=== PATIENT | female | born 1990 | race Caucasian/White ===

== ENCOUNTER 2019-03-23 12:18 | Emergency (ER) | payer OTHER ==
[~2019-03-23] VITALS: Ht 157.5 cm; Wt 63.3 kg
[2019-03-23] MEDS ORDERED: FAMO20TA PO (12:31)
[2019-03-23] MEDS ORDERED: GNP28TAB2 PO (12:31)
[2019-03-23 13:34] LABS: BASO % 0.3 % (0.0-1.0); EOS # 0.2 10^3/uL (0.0-0.5); EOS % 1.8 % (0.0-3.0); HEMATOCRIT 41.9 % (36.0-47.0); HEMOGLOBIN 13.9 g/dl (12.0-15.5); LYMPH # 1.4 10^3/uL (1.5-5.0); LYMPH % 10.4 % (24.0-44.0); MEAN CORPUSCULAR HEMOGLOBIN 30.2 pg (27.0-33.0); MEAN CORPUSCULAR HGB CONC 33.2 g/dl (32.0-36.5); MEAN CORPUSCULAR VOLUME 90.9 fl (80.0-96.0); MONO # 0.7 10^3/uL (0.0-0.8); MONO % 5.3 % (0.0-5.0); NEUTROPHILS # 11.2 10^3/uL (1.5-8.5); NEUTROPHILS % 81.7 % (36.0-66.0); PLATELET COUNT, AUTOMATED 248 10^3/uL (150-450); RED BLOOD COUNT 4.61 10^6/uL (4.00-5.40); WHITE BLOOD COUNT 13.7 10^3/uL (4.0-10.0)
[2019-03-23 14:01] LABS: HCG, SERUM QUALITATIVE POSITIVE (NEGATIVE)
[2019-03-23 14:02] LABS: ALT/SGPT 40 U/L (12-78); BLOOD UREA NITROGEN 8 MG/DL (7-18); CALCIUM LEVEL 8.7 MG/DL (8.5-10.1); CARBON DIOXIDE LEVEL 27 MEQ/L (21-32); CHLORIDE LEVEL 109 MEQ/L (98-107); CREATININE FOR GFR 0.56 MG/DL (0.55-1.30); GLOMERULAR FILTRATION RATE > 60.0 (>60); GLUCOSE, FASTING 75 MG/DL (70-100); POTASSIUM SERUM 4.4 MEQ/L (3.5-5.1); SODIUM LEVEL 139 MEQ/L (136-145)
[2019-03-23 14:03] LABS: ALBUMIN 3.7 GM/DL (3.2-5.2); BILIRUBIN,DIRECT 0.1 MG/DL (0.0-0.2); BILIRUBIN,TOTAL 0.4 MG/DL (0.2-1.0); LIPASE 111 U/L (73-393); TOTAL PROTEIN 7.3 GM/DL (6.4-8.2)
[2019-03-23 16:04] LABS: CK-MB VALUE MASS < 1.0 NG/ML (<3.6); CPK CREATINE PHOSPHOKINASE 58 U/L (26-192); MB/CK RELATIVE INDEX 1.72 (< OR =4); TROPONIN I < 0.02 NG/ML (< 0.10)
[2019-03-23] MEDS ORDERED: NS 1,000 ML IV ONE (16:45)
[2019-03-23] MEDS ORDERED: ONDANSETRON 4MG/2ML VIAL (J2405) IV ONE (16:45)
--- NOTE | 2019-03-23 16:53 | REP ---
FIRST TRIMESTER ULTRASOUND: Real-time sonographic evaluation of the gravid uterus performed. There is a single living intrauterine gestation. The estimated gestational age is 8 weeks 5 days based on a crown rump length of 21 mm, EDC 10/28/2019. heart rate 182 beats per minute. No subchorionic hemorrhage is seen. No maternal region adnexal abnormality is seen. There is no torsion with duplex Doppler evaluation. Electronically Signed by Stephon Romeo MD 03/23/2019 05:06 P
[2019-03-23] MEDS ORDERED: CALCIUM CARBONATE 500 MG CHEW U/D PO ONE (17:30)
[2019-03-23 18:06] VITALS: BP 114/63
--- NOTE | 2019-03-24 15:00 | ECGEPIP ---
[facility] - ED Test Date: 2019-03-23 Pat Name: PEE ONEIL Department: Room: - Gender: Female Cio: osmar : 1990 Requested By: RONAK TAN Order Number: [id number] Reading MD: Eder Palma Measurements Intervals Ola Rate: 61 P: 59 UT: 154 QRS: 51 QRSD: 95 T: -2 QT: 401 QTc: 404 Interpretive Statements SINUS RHYTHM WITH MARKED SINUS ARRHYTHMIA Comparison tracing not on file Electronically Signed on 03-24-2019 15:00:39 EST by Eder Palma
== END 2019-03-23 18:20 | disposition home or self-care (01) ==
LOC: M ED 12:18
DX: O26.891 Other specified pregnancy related conditions, first trimester (principal); R10.9 Unspecified abdominal pain; R11.0 Nausea; Z3A.08 8 weeks gestation of pregnancy; Z91.040 Latex allergy status
CPT/HCPCS: 76801; 80048; 80076; 81001; 82550; 82553; 83690; 84484; 84703; 85025; 86901; 93005; 93976; 96361; 96374; 99284; J2405

== ENCOUNTER 2019-07-04 13:23 | Emergency (ER) | payer OTHER ==
[~2019-07-04] VITALS: Ht 157.5 cm; Wt 72.7 kg
[~2019-07-04 13:23] MED LIST: FAMO20TA PO; GNP28TAB2 PO
[2019-07-04 13:33] VITALS: BP 120/70
--- NOTE | 2019-07-05 07:12 | ECGEPIP ---
[facility] - ED Test Date: 2019-07-04 Pat Name: PEE ONEIL Department: Room: - Gender: Female Pharmacy Intake Coordinator: CT : 1990 Requested By: STEPHEN HUNTER PA-C. Order Number: [id number] Reading MD: Karmen Conroy Measurements Intervals Colbert Rate: 80 P: 49 VT: 133 QRS: 50 QRSD: 91 T: -1 QT: 363 QTc: 420 Interpretive Statements SINUS RHYTHM INCREASED RATE 03/23/19 Electronically Signed on 07-05-2019 7:12:48 EDT by Karmen Conroy
== END 2019-07-04 14:12 | disposition home or self-care (01) ==
LOC: M ED 13:23
DX: O99.342 Other mental disorders complicating pregnancy, second trimester (principal); F41.0 Panic disorder [episodic paroxysmal anxiety]; Z3A.24 24 weeks gestation of pregnancy; F33.9 Major depressive disorder, recurrent, unspecified; Z79.899 Other long term (current) drug therapy; Z91.040 Latex allergy status

== ENCOUNTER 2019-07-25 17:08 | Outpatient (CLI) | payer OTHER ==
[~2019-07-25] VITALS: Ht 157.5 cm; Wt 75.8 kg
[2019-07-25 17:26] VITALS: BP 105/57
--- NOTE | 2019-07-25 18:02 | IPNPDOC ---
Text Note Date of Service The patient was seen on 07/25/19. NOTE Patient is 29yo at 26wks. C/o decreased movement. No contractions. No loss of fluid or bleeding. Good movement upon arrival. PE: VS WNL GEN NAD, Comfortable FHT: Category 1, 140s, reactive, no decels. no contractions. A/P: Fetus reassuring. Patient not in labor and no rupture of membranes. Patient given labor precautions, rupture of membranes precautions and kick counts. She has a follow up appt on 08/02/2019. VS,Fishbone, I+O VS, Fishbone, I+O Vital Signs Date Time Temp Pulse Resp B/P (MAP) Pulse Ox O2 Delivery O2 Flow Rate FiO2 07/25/19 17:26 98.9 85 16 105/57 (73) Modesta Lacy MD Jul 25, 2019 18:02
== END 2019-07-25 18:00 | disposition home or self-care (01) ==
LOC: M LDO 17:08
PROVIDERS: ATTEND Obstetrics & Gynecology
DX: O36.8120 Decreased fetal movements, second trimester, not applicable or unspecified (principal); Z3A.26 26 weeks gestation of pregnancy
CPT/HCPCS: 59025; G0378; G0463

== ENCOUNTER 2019-10-21 12:35 | Inpatient (IN) | payer OTHER ==
[~2019-10-21] VITALS: Ht 157.5 cm; Wt 86.5 kg
[2019-10-21] MEDS ORDERED: LR 1,000 ML IV SCH (15:39)
[2019-10-21 15:40] LABS: HEMATOCRIT 35.2 % (36.0-47.0); HEMOGLOBIN 11.9 g/dl (12.0-15.5); MEAN CORPUSCULAR HEMOGLOBIN 32.1 pg (27.0-33.0); MEAN CORPUSCULAR HGB CONC 33.8 g/dl (32.0-36.5); MEAN CORPUSCULAR VOLUME 94.9 fl (80.0-96.0); PLATELET COUNT, AUTOMATED 207 10^3/uL (150-450); RED BLOOD COUNT 3.71 10^6/uL (4.00-5.40); WHITE BLOOD COUNT 12.8 10^3/uL (4.0-10.0)
[2019-10-21] MEDS ORDERED: OXYTOCIN DRIP 30 UNITS in IV 1 EA IV SCH (15:45)
--- NOTE | 2019-10-21 15:52 | HPEPDOC ---
Obstetrical History & Physical General Date of Admission Oct 21, 2019 at 13:23 History of Present Illness 29yo at 39w2d with LOF. Has had irreg ctx. No vaginal bleeding. Chief Complaint: Rupture of membranes Information Provided By: Patient Age: 29 : 3 Livin Care Care: Good Care Dating Final EDC: Oct 25, 2019 Final EDC by: LMP, 1st trimester (US) LMP: Jan 18, 2019 EGA at Admission: 39 Past Medical History Past Obstetrical History : Past Obstetrical History: Multigravida Type of Delivery: Spontaneous Vaginal Del. 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 BREAST: . ABDOMEN: Gravid and non-tender to touch. FETUS: Is vertex (VTX) by sterile vaginal examination (SVE), fetus is vertex (VTX) by Barak. HEART RATE: Regular rate and rhythm. LUNGS: Clear to auscultation (CTA). Laboratory Data 24H LABS Laboratory Tests 2 10/21/19 13:31: Serology Scanned Report Hepatitis B Testing 10/21/19 14:10: CBC/BMP Pertinent Laboratoy Data Blood Type: A+ HIV: Negative Hepatitis B: Negative Rapid Plasma Reagin: Nonreactive Rubella: Immune Varicella: Immune Chlamydia/Gonorrhea: Negative Group B Streptococcus: Negative Glucose Tolerance Test: 125 Anatomy Ultrasound Placenta Location: Posterior Normal Anatomy: Yes Placenta Previa: No Vaginal Examination Dilation: 3 cm Effacement: 70% Station: -3 (Grossly ruptured) Cervical Consistency: Soft Cervical Position: Middle Presentation: Cephalic presentation Assessment Variability: Moderate Accelerations: Positive Decelerations: None Tocometer Contractions: No Frequency: irregular Assessment/Plan Assessment 29yo at 39w2d with PROM Reassuring status Plan Admit and orient. Professor Of Communication and consent. Group B Streptococcus (GBS) negative. Labs and intravenous (IV) per unit protocol. Counseled on Pitocin and induction of labor (IOL). Anticipate normal spontaneous delivery (). C-S as appropriate. CRISTOBAL TAYLOR MD. Oct 21, 2019 15:52
[2019-10-21] MEDS ORDERED: FENTANYL 2MCG/ML ROPIVACAINE 0.2% IN 0.9% NACL 100ML IVBAG As Ordered ONE (22:38)
[2019-10-21] MEDS ORDERED: ePHEDrine SULFATE 25 MG/5 ML(5MG/ML) SYRINGE IV PRN (23:30)
[2019-10-21] MEDS ORDERED: FENTANYL/ROPIVACAINE/NACL BAG 100 ML EPIDURAL SCH (23:30)
[2019-10-21] MEDS ORDERED: EPIDURAL/PCA KEYS XX PRN (23:30)
[2019-10-21] MEDS ORDERED: LACTATED RINGER'S 1000 ML IV PRN (23:30)
[2019-10-21] MEDS ORDERED: diphenhydrAMINE 50MG/ML VIAL (J1200) IV PRN (23:30)
[2019-10-21] MEDS ORDERED: NALOXONE INJ 0.4MG/1ML VIAL (J2310 PER 1MG) IV PRN (23:30)
[2019-10-21] MEDS ORDERED: EPIDURAL COMMENT XX SCH (23:30)
[2019-10-21] MEDS ORDERED: REFRIGERATOR IV KEYS XX PRN (23:30)
[2019-10-21] MEDS ORDERED: ONDANSETRON 4MG/2ML VIAL IV PRN (23:30)
[2019-10-22] MEDS ORDERED: OXYTOCIN DRIP 30 UNITS in IV 1 EA IV SCH (00:05)
--- NOTE | 2019-10-22 00:11 | DNPDOC ---
[facility] Delivery Note Delivery Note DATE OF DELIVERY: 10/21/2019 TIME OF : 2348 GENDER: Male. APGARS: 8 and 9. WEIGHT: 4230 grams or 9 pounds 5 ounces. LACERATIONS: None ANESTHESIA: Epidural. COUNTS: 5 laparotomy sponges accounted for prior to after delivery. DELIVERY NOTE: On 10/21/2019, Mrs Styles a 29yo G3, now P3 had a spontaneous vaginal delivery of viable male infant, Apgars 8 and 9 and weight was 4230 g or 9 lbs. 5 oz. Head was delivered occiput anterior (OA) with compound right hand and cord around body. Shoulders and corpus delivered. Infant was handed to mom with a good cry. Cord was clamped times two and was cut by the father of baby under my direction. Placenta was then drained and delivered grossly intact. A premixed bag of 500 mL of normal saline with 30 units of Pitocin was then bolused along with uterine massage until the uterus was firm. On inspection,cervix, vagina, perineum was grossly intact and hemostatic. Mom and baby in recovery on stable condition. The couples decided to remain in son Bladimir White. CRISTOBAL TAYLOR MD. Oct 22, 2019 00:11
[2019-10-22] MEDS ORDERED: ACETAMINOPHEN TAB 650MG DOSE (2X325MG) PO PRN (00:15)
[2019-10-22] MEDS ORDERED: MOM 30ML SUSPENSION UDC PO PRN (00:15)
[2019-10-22] MEDS ORDERED: DIBUCAINE 1% OINTMENT 30GM TOP PRN (00:15)
[2019-10-22] MEDS ORDERED: RHOGAM 300 MCG (1500 IU) INJ (J2790) IM SCH (00:15)
[2019-10-22] MEDS ORDERED: DOCUSATE SODIUM 100 MG CAP PO PRN (00:15)
[2019-10-22] MEDS ORDERED: METHYLERGONOVINE MALEATE 0.2 MG TAB PO PRN (00:15)
[2019-10-22] MEDS ORDERED: MEASLES,MUMPS,RUBELLA VACCINE INJ (MMR-II) (90707) SC SCH (00:15)
[2019-10-22] MEDS ORDERED: IBUPROFEN 600MG TAB PO PRN (00:15)
[2019-10-22 03:06] VITALS: BP 118/65
[2019-10-22] MEDS: ACETAMINOPHEN 500 MG TAB PO PRN ×2 (04:14→11:53)
[2019-10-22 06:00] VITALS: BP 113/56
[2019-10-22] MEDS: IBUPROFEN 800 MG TAB PO PRN ×2 (06:25→20:42)
--- NOTE | 2019-10-22 06:52 | IPNPDOC ---
Progress Note Date of Service: Oct 22, 2019 Day#: 1 Progress Note SUBJECT: Doing well without complaints. Ambulating, voiding and pain is well- controlled. Reports minimal lochia. OBJECTIVE: VITAL SIGNS: Within normal limits, afebrile. Alert and oriented times three. Abdomen: Fundus firm at U-2. Soft, NTTP. Ext: neg calf tenderness. ASSESSMENT: day #1 status post normal spontaneous vaginal delivery. Recovering in stable condition. PLAN: 1. Continue routine care 2. Discharge plans for tomorrow VS, I&O, 24H, Fishbone Vital Signs/I&O Vital Signs Date Time Temp Pulse Resp B/P (MAP) Pulse Ox O2 Delivery O2 Flow Rate FiO2 10/22/19 06:00 98.0 65 18 113/56 (75) I&O- Last 24 Hours up to 6 AM 10/22/19 06:00 Intake Total 2100 ml Output Total 1750 ml Balance 350 ml Laboratory Data 24H LABS Laboratory Tests 2 10/21/19 13:31: Serology Scanned Report Hepatitis B Testing 10/21/19 14:10: Nucleated Red Blood Cells % (auto) 0.0, Syphilis Serology NONREACTIVE CBC/BMP Laboratory Tests 10/21/19 14:10 CRISTOBAL TAYLOR MD. Oct 22, 2019 06:52
[2019-10-22] MEDS: PRENATAL VITAMINS CHEWABLE TABLET PO SCH (07:35)
[2019-10-22] MEDS ORDERED: SIMETHICONE 80 MG CHEW TAB PO PRN (17:15)
[2019-10-22 18:00] VITALS: BP 101/65
[2019-10-23] MEDS: ACETAMINOPHEN 500 MG TAB PO PRN (05:24)
[2019-10-23 06:51] VITALS: BP 112/66
--- NOTE | 2019-10-23 07:15 | OBDS ---
[facility] Obstetrical Discharge Sum. Obstetrical Discharge Summary Date: Oct 23, 2019 Time: 06:45 : 3 Term: 3 Pre-term: 0 Abortions: 0 Livin VDRL: Non-Reactive Rh: Negative Rubella: Immune Labor uncomplicated labor Delivery spontaneous vaginal delivery Infant Sex: Male Anesthesia: Regional Anesthesia Episiotomy none A/P, Post Course List any complications Admission diagnosis: labor. Discharge diagnosis: day 2 Condition at Discharge: [stable] Discharge Instructions: [Home] Activity: [increase activity as comfortable, pelvic rest x 6wks, no baths or swimming] Diet: [regular diet] Medications: [ meds at [place], script to resume Zoloft] Follow-up: [f/u in OB clinic 2 wks for mental health evaluation and control counseling, 6wks for physical exam] Other: JANETTE CEJA CNM Oct 23, 2019 07:15
[2019-10-23] MEDS: PRENATAL VITAMINS CHEWABLE TABLET PO SCH (07:45)
[2019-10-23] MEDS ORDERED: INFLUENZA QUADRIVALENT PF VACCINE 0.5ML SYRINGE IM ONE (09:00)
--- NOTE | 2019-10-30 10:48 | IPN ---
DATE: 10/22/2019 Patient and requested circumcision of their male after discussing risks and benefits of the circumcision, the medical and non-medical indications, the penile block and aftercare, expressed understanding of penile block and aftercare. Signed a consent form. All questions were answered, 20- minute discussion. We await the clearance by the stonecutter apprentice hand. GUI
== END 2019-10-23 12:20 | disposition home or self-care (01) | DRG 807 ==
LOC: M LDO 12:35 → M LDI 13:23 → M OBS 10-22 03:05
PROVIDERS: ADMIT Obstetrics & Gynecology; ATTEND Obstetrics & Gynecology
PROC: 10E0XZZ Delivery of Products of Conception, External Approach (ICD-10-PCS; principal; 2019-10-21)
DX: O42.02 Full-term premature rupture of membranes, onset of labor within 24 hours of rupture (principal); Z37.0 Single live birth; Z3A.39 39 weeks gestation of pregnancy

== ENCOUNTER 2020-01-13 18:02 | Emergency (ER) | payer OTHER ==
[~2020-01-13] VITALS: Ht 157.5 cm; Wt 70.3 kg
[2020-01-13 18:03] VITALS: BP 114/76
[2020-01-13] MEDS ORDERED: IBUP200T45 PO (18:17)
[2020-01-13] MEDS ORDERED: ZOLO25TA PO (18:17)
[2020-01-13] MEDS ORDERED: AMOXICILLIN 500 MG CAP PO ONE (19:00)
[2020-01-13] MEDS ORDERED: AMOX875T PO (19:02)
[2020-01-13] MEDS ORDERED: CIPR0.3S6 AD (19:02)
== END 2020-01-13 19:08 | disposition home or self-care (01) ==
LOC: M ED 18:59
DX: H60.91 Unspecified otitis externa, right ear (principal); H66.003 Acute suppurative otitis media without spontaneous rupture of ear drum, bilateral; F33.9 Major depressive disorder, recurrent, unspecified; F41.9 Anxiety disorder, unspecified; Z91.040 Latex allergy status; Z79.899 Other long term (current) drug therapy

== ENCOUNTER 2021-03-19 14:38 | Emergency (ER) | payer OTHER ==
[~2021-03-19] VITALS: Ht 157.5 cm; Wt 64.2 kg
[~2021-03-19 14:38] MED LIST changes: +AMOX875T PO; +CIPR0.3S6 AD; +IBUP200T46 PO; +ZOLO25TA PO
[2021-03-19] MEDS ORDERED: MULTTAB20 PO (14:43)
[2021-03-19 17:04] LABS: BASO % 0.3 % (0.0-1.0); EOS # 0.2 10^3/uL (0.0-0.5); EOS % 1.6 % (0.0-3.0); HEMATOCRIT 39.2 % (36.0-47.0); HEMOGLOBIN 13.1 g/dl (12.0-15.5); LYMPH # 2.7 10^3/uL (1.5-5.0); LYMPH % 24.2 % (24.0-44.0); MEAN CORPUSCULAR HEMOGLOBIN 30.1 pg (27.0-33.0); MEAN CORPUSCULAR HGB CONC 33.4 g/dl (32.0-36.5); MEAN CORPUSCULAR VOLUME 90.1 fl (80.0-96.0); MONO # 0.7 10^3/uL (0.0-0.8); NEUTROPHILS # 7.5 10^3/uL (1.5-8.5); NEUTROPHILS % 67.5 % (36.0-66.0); PLATELET COUNT, AUTOMATED 251 10^3/uL (150-450); RED BLOOD COUNT 4.35 10^6/uL (4.00-5.40); WHITE BLOOD COUNT 11.2 10^3/uL (4.0-10.0)
[2021-03-19 19:46] VITALS: BP 115/61
[2021-03-19 20:01] LABS: APPEARANCE, URINE CLEAR (CLEAR); BILIRUBIN, URINE AUTO NEGATIVE (NEGATIVE); COLOR, URINE YELLOW (YELLOW); GLUCOSE, URINE (UA) AUTO NEGATIVE (NEGATIVE); KETONE, URINE AUTO NEGATIVE (NEGATIVE); LEUKOCYTE ESTERASE, URINE AUTO NEGATIVE (NEGATIVE); NITRITE, URINE AUTO NEGATIVE (NEGATIVE); PROTEIN, URINE AUTO NEGATIVE (NEGATIVE); UROBILINOGEN, URINE AUTO 0.2 mg/dL (0.0-2.0)
[2021-03-19 20:02] LABS: BACTERIA, URINE AUTO NEGATIVE (NEGATIVE); BLOOD, URINE BLOOD NEGATIVE (NEGATIVE); RBC, URINE AUTO 0 /HPF (0-3); SQUAMOUS EPITHELIAL CELL UR AU 0 /HPF (0-6); WBC, URINE AUTO 0 /HPF (0-3)
== END 2021-03-19 20:31 | disposition home or self-care (01) ==
LOC: M ED 14:38
DX: O26.891 Other specified pregnancy related conditions, first trimester (principal); R10.2 Pelvic and perineal pain; W00.9XXA Unspecified fall due to ice and snow, initial encounter; F41.9 Anxiety disorder, unspecified; F32.A Depression, unspecified; Z91.040 Latex allergy status; Z3A.01 Less than 8 weeks gestation of pregnancy